=== PATIENT | male | born 1950 | race Caucasian/White ===

== ENCOUNTER 2022-07-14 21:25 | Emergency (ER) | payer MEDICARE, BC ==
[2022-07-14 21:38] VITALS: BP 131/71; PULSE 91
[2022-07-14] MEDS ORDERED: Diphtheria,Pertussis(Acell),Tetanus Vaccine 0.5 ML Syringe IM ONE (21:40)
[2022-07-14] MEDS ORDERED: Cephalexin 500 MG Cap PO ONE (22:04)
== END 2022-07-14 22:29 | disposition home or self-care (01) ==
LOC: MW.ED 21:25
DX: S61.431A Puncture wound without foreign body of right hand, initial encounter (principal); S60.221A Contusion of right hand, initial encounter; Z23 Encounter for immunization; W26.8XXA Contact with other sharp object(s), not elsewhere classified, initial encounter
CPT/HCPCS: 73130; 90471; 90715; 99283; A9270

== ENCOUNTER 2024-01-12 06:36 | Day surgery (SDC) | payer MEDICARE ==
[~2024-01-12 06:36] MED LIST: Acetaminophen 1,000 MG in Premix Bag 1 BAG IV SCH; Albuterol 0.083% 2.5 MG/3 ML Neb Soln NEB PRN; HYDROmorphone 1 MG/ML Syringe IVPUSH PRN; Metoclopramide 10 MG/2 ML SDV IVPUSH PRN; Morphine 2 MG/ML SYRINGE IVPUSH PRN; Naloxone 0.4 MG/ML SDV IVPUSH PRN; Ondansetron 4 MG/2 ML SDV IVPUSH PRN; ceFAZolin 2 GM in Sodium Chloride 0.9% 50 ML IV ONE; droPERidol 5 MG/2 ML SDV IVPUSH PRN; fentaNYL 50 MCG/ML SDV IVPUSH PRN
[2024-01-12] MEDS: Lactated Ringers 1,000 ML IV SCH (07:22)
[2024-01-12] MEDS: Pregabalin 75 MG Cap PO SCH (07:25)
[2024-01-12] MEDS ORDERED: Rocuronium Bromide 50 MG/5 ML Syringe ONE (07:26)
[2024-01-12] MEDS ORDERED: Dexamethasone 4 MG/ML 5 ML MDV ONE (07:26)
[2024-01-12] MEDS ORDERED: Lidocaine 2% 5 ML SDV ONE (07:26)
[2024-01-12] MEDS ORDERED: Ondansetron 4 MG/2 ML SDV ONE (07:26)
[2024-01-12] MEDS ORDERED: fentaNYL 100 MCG/2 ML SDV ONE (07:26)
[2024-01-12] MEDS ORDERED: Propofol 200 MG/20 ML SDV ONE (07:26)
[2024-01-12] MEDS ORDERED: Sugammadex Sodium 200 MG/2 ML VIAL IV ONE (07:26)
[2024-01-12] MEDS ORDERED: Ketamine HCL/NACL, ISO-OSM 50 MG/5 ML Syringe ONE (07:27)
[2024-01-12] MEDS ORDERED: Bupivacaine 0.5% 30 ML SDV ONE (07:31)
[2024-01-12] MEDS ORDERED: Bupivacaine 0.25% 30 ML SDV ONE ×2 (07:42→08:52)
[2024-01-12] MEDS ORDERED: Bupivacaine 0.5%/EPINEPHrine 1:200,000 30 ML SDV ONE (07:42)
[2024-01-12] MEDS ORDERED: ceFAZolin 2 GM Vial ONE (08:01)
[2024-01-12] MEDS ORDERED: ePHEDrine 50 MG/ML SDV ONE (08:06)
[2024-01-12] MEDS ORDERED: Water For Injection, Sterile 20 ML ONE (08:22)
[2024-01-12] MEDS ORDERED: Ropivacaine 0.5% 5 MG/ML 30 ML SDV ONE (08:52)
[2024-01-12] MEDS ORDERED: EPINEPHrine 1 MG/1 ML Amp ONE (08:54)
[2024-01-12] MEDS: Ondansetron 4 MG Tab.DIS PO ONE (11:13)
[2024-01-12 12:03] VITALS: BP 153/78; PULSE 80
== END 2024-01-12 12:25 | disposition home or self-care (01) ==
LOC: MW.SDS 06:36
PROVIDERS: ATTEND Surgery
DX: K40.20 Bilateral inguinal hernia, without obstruction or gangrene, not specified as recurrent (principal); I34.0 Nonrheumatic mitral (valve) insufficiency; E03.9 Hypothyroidism, unspecified; Z79.890 Hormone replacement therapy; Z98.890 Other specified postprocedural states
CPT/HCPCS: 49650; 64488; A9270; J0131; J0171; J0665; J0690; J1100; J2405; J2704; J2795; J3010; J3490; J7120

== ENCOUNTER 2025-06-16 15:26 | Emergency (ER) | payer MEDICARE ==
[2025-06-16 15:44] VITALS: BP 154/75; PULSE 58
[2025-06-16] MEDS: Tetracaine HCl/PF 0.5% 4 ML Bottle EYEBOTH ONE (15:57)
[2025-06-16] MEDS: Fluorescein 1 MG Ophth Strip EYELF ONE (16:28)
== END 2025-06-16 16:50 | disposition home or self-care (01) ==
LOC: MW.ED 15:26
DX: S05.01XA Injury of conjunctiva and corneal abrasion without foreign body, right eye, initial encounter (principal); H93.13 Tinnitus, bilateral; E03.9 Hypothyroidism, unspecified; Z63.9 Problem related to primary support group, unspecified; Z59.82 Transportation insecurity; Z75.3 Unavailability and inaccessibility of health-care facilities; Z79.890 Hormone replacement therapy; Z90.49 Acquired absence of other specified parts of digestive tract; X58.XXXA Exposure to other specified factors, initial encounter
CPT/HCPCS: 99283; 99284; J3490